=== PATIENT | male | born 1945 | race Caucasian/White ===

== ENCOUNTER → 2025-03-31 15:36 | Outpatient (REF) | payer OTHER, SELFPAY | LOC: RCS 15:36 | PROVIDERS: ATTENDING PHYSICIAN Internal Medicine Cardiovascular Disease; FAMILY PHYSICIAN Internal Medicine | DX: I48.91 Unspecified atrial fibrillation (principal); I10 Essential (primary) hypertension; I44.7 Left bundle-branch block, unspecified | CPT/HCPCS: 93306 ==

== ENCOUNTER 2025-04-19 05:59 | Day surgery (SDC) | payer OTHER, SELFPAY ==
[2025-04-13 10:36] VITALS: BMI 28.5
[2025-04-13 11:10] LABS: INR 1.03; PT 13.8 Sec (11.4-14.6)
[2025-04-13 11:19] LABS: ALT (SGPT) 30 U/L (0-50); AST (SGOT) 33 U/L (17-59); Albumin 4.5 g/dl (3.5-5.0); Alkaline Phosphatase 45 U/L (38-126); Blood Urea Nitrogen 19 mg/dl (9-20); Carbon Dioxide 25 mmol/L (22-30); Chloride 109 mmol/L (98-107); Estimated Creatinine Clearance 57 ml/min; Glucose 88 mg/dl (70-99); Magnesium 2.1 mg/dl (1.6-2.3); Potassium 4.3 mmol/L (3.5-5.1); Sodium 140 mmol/L (135-145); Total Bilirubin 0.6 mg/dl (0.2-1.3); Total Protein 6.9 g/dl (6.3-8.2); eGFR > 60.00
[2025-04-13 11:25] LABS: % Basophils 1.2 % (0-2); % Eosinophils 2.8 % (0-6); % Immature Granulocytes 0.6 % (0-0.5); % Lymphocytes 21.9 % (20.5-51.1); % Monocytes 13.9 % (1.7-9.3); % Neutrophils 59.6 % (42.2-75.2); Absolute Basophils 0.1 10^3/uL (0-0.2); Absolute Eosinophils 0.2 10^3/uL (0-0.7); Absolute Immature Granulocytes 0.1 10^3/uL (0-0.05); Absolute Lymphocytes 1.9 10^3/uL (1.2-3.4); Absolute Monocytes 1.2 10^3/uL (0.1-0.6); Hematocrit 42.6 % (39.0-52.0); Hemoglobin 14.6 g/dL (13.0-18.0); Mean Corp Hgb Conc. 34.3 g/dL (33.0-37.0); Mean Corpuscular Hgb 32.5 pg (27.0-31.0); Mean Corpuscular Volume 94.9 fL (80.0-94.0); Mean Platelet Volume 9.6 fL (7.4-10.4); Nucleated Red Blood Cells % 0 % (-); Platelet Count 287 10^3/uL (130-400); Red Blood Cell Count 4.49 10^6/uL (4.70-6.10); Red Cell Dist. Width 13.2 % (11.5-14.5); White Blood Cell Count 8.4 10^3/uL (4.8-10.8)
[2025-04-19] VITALS (15 sets, daily range): BP systolic 122–155; BP diastolic 48–84; BMI 28.2
--- NOTE | 2025-04-19 07:41 | ITS.CL.ABL ---
Fusing Machine Feeder - Ablation
Ablation
Procedure Report:
Primary Floor Supervisor: Dr Medardo Escobedo
Procedure Date: 04/19/2025
Patient History:
Patient is a pleasant 80 year old male with past medical history significant for sleep apnea not treated, hyperlipidemia, hypertension, left bundle branch block, and symptomatic paroxysmal recurrent AF despite antiarrhythmic medical therapy.
See H&P for complete details.
Indication:
Symptomatic paroxysmal atrial fibrillation
Recurrence despite antiarrhythmic medical therapy
Arrhythmia Specific History:
Prior Medical Therapies for Rate and Rhythm Control:
[ ] Beta-cristian
[ ] Calcium channel-cristian
[ ] Amiodarone
[ ] Dronederone
X Sotalol
[ ] Flecainide
[ ] Dofetilide
X Options limited by bradycardia
[ ] Options limited by comorbid renal disease
Prior Procedural Therapies for AF/AFL:
[ ] Cardioversion
[ ] Pulmonary Vein Isolation
[ ] Posterior Wall Isolation
[ ] Additional lines (Specify)
[ ] Surgical Pedro-MAZE or PVI (Specify)
Procedure Performed:
X AF ablation procedure (95640) -- includes LA/CS pacing, trans-septal, 3D mapping, + ICE
[ ] +IV drug (42071)
[ ] +Other Arrhythmia (26168)
X +Other AF Line/ablation (35076 x2) -- floor line, roof line, and posterior wall isolation
Risks and expected recovery has been explained in detail. Alternative options have been explored, and in a shared-decision making fashion we have decided that this was the most appropriate procedure.
Method
NPO status confirmed. Grounding pad applied. Defibrillator pads applied. Continuous surface ECG, pulse oximetry, and blood pressure were monitored. Procedure was performed under general anesthesia, with anesthesia services.
Both groins were clipped, prepped with Chloraprep, and draped in sterile fashion. Time out was called. Local anesthesia administered with bupivacaine. The right femoral vein was accessed for catheter placement, using ultrasound guidance (images
saved to record), micro-puncture needle/wire, and modified seldinger technique. 3 sheaths were placed. The following catheters were used:
[ ] Tacticath SE (D/F Curve) ablation catheter
X Viewflex 9Fr ICE catheter
X Inquiry decapolar 6Fr diagnostic catheter
[ ] CRD Hex 6Fr
[ ] Arctic Front Advance Cryoballoon ([ ]28mm[ ]23mm)
[ ] Achieve Advance mapping catheter ([ ]15mm[ ]20mm)
X FlexCath Contour 10 Fr with PulseSelect PFA Catheter
X Advisor HD Grid Mapping Catheter, SE
[ ] Acuson AcuNav 8 Fr ICE catheter
[ ]Other: [ ]
Intracardiac ultrasound (ICE) was carefully advanced into the right atrium to guide sheath placement over a J-wire, catheter placement, guide trans-septal puncture, identify potential complications, identify anatomic structures and ensure proper
contact between ablation catheter and tissue.
Heparin was given prior to trans-septal puncture. Heparin was given to achieve and maintain a target ACT of 300-400 seconds throughout the procedure.
Trans-septal access was performed under ICE guidance. The trans-septal puncture was performed with a SafeSept wire through a Brockenbrough needle assembly through the steerable sheath. The wire was visualized as it entered the LSPV and system
advanced under ICE guidance and fluoroscopy into the LA. The Brockenbrough needle assembly, SafeSept wire and sheath dilator were removed under negative pressure. LA pressure was measured and recorded.
ICE and 3D mapping was performed to identify relevant cardiac structures. A careful 3D map was created to assess for regions of low-voltage and abnormal electrogram signals using HD grid mapping catheter and PulseSelect catheter. Additional mapping
was performed as outlined below.
Prior to ablation, glycopyrrolate was provided. PulseSelect catheter was advanced over J-wire to the ostium of each vein. Pulmonary vein isolation was performed with ostial and antral lesions in a circumferential manner. Contact was visualized via
EAM, ICE, fluoroscopy, and EGM signals. Due to anatomy and clinical history, a floor line, roof line and posterior wall isolation were performed by anchoring the J-wire within the pulmonary vein and placing the PulseSelect catheter in contact with
the floor, roof, and posterior wall as visualized by aforementioned methods. Following completion of ablation lesions, a post-ablation voltage/activation map was performed in sinus rhythm. Entrance and exit block were confirmed for each vein and the
posterior wall.
Catheter and sheath were removed from the left atrium and post-ablation intracardiac echo evaluation was consistent with pre-ablation with no changes and no pericardial effusion and there is no left atrial thrombus or left ventricle thrombus seen.
Electrophysiology study was performed. Hemostasis was obtained with figure of 8 stitch for each groin and with manual pressure. Protamine was used for reversal.
Estimated Blood Loss
5 mL
Complications
None
Fluoroscopy: 1.7 minutes; 3.97 mGy; DAP 1.01
LA Pressure: Pre 10 mmHg, post 13 mmHg
Baseline Intervals:
Rhythm: SR
CO: 160 ms
QRS: 110 ms
QT: 437 ms
QTc: 395 ms
A-A: 1224 ms
R-R: 1224 ms
Post-Procedure Intervals:
CO: 162 ms
QRS: 110 ms
QT: 473 ms
QTc: 444 ms
A-A: 1113 ms
R-R: 1113 ms
AVWB: 370 ms
AVNERP: 600/310 ms
AERP: 600/270 ms
Recommendations
- Bedrest with straight-leg precautions as ordered
- Anticipate same day discharge if patient meeting clinical metrics
- Resume home medications as indicated
- Ok to resume anticoagulation tonight if patient and groin sites stable
- PPI daily for 30 days
- Plan for follow-up in office as scheduled
- Decrease sotalol to 80 mg twice daily with plan discontinue at 3 months
Darin Keller, DO, FACC, RS
Clinical Cardiac Luggage Attendant
cc: Dr Medardo Escobedo; Dr Marilou Cason
[2025-04-19 08:30] LABS: ACT-LR - POC 273 Seconds (116-155)
[2025-04-19 08:43] LABS: ACT-LR - POC 306 Seconds (116-155)
[2025-04-19 09:06] LABS: ACT-LR - POC 313 Seconds (116-155)
[2025-04-19 09:34] LABS: ACT-LR - POC 224 Seconds (116-155)
[2025-04-19] MEDS: ANESTHETIC LOZENGE 1 LOZENGE PO (11:38)
--- NOTE | 2025-04-19 13:34 | W.PN.UPDATE ---
Update Note
Progress Note Update
Pt seen post PFA. Right groin site without ht/bleeding, oob ambulating, urinating without difficulty. Post EKG NSR 60s, no acute changes. Resume eliquis tonight at usual time. Decrease sotalol to 80mg BID at this time, with intention to discontinue
in [address] Escobedo as scheduled. Home today if groin site/tele remain stable.
== END 2025-04-19 14:33 | disposition home or self-care (01) ==
LOC: CATH 05:59
PROVIDERS: ATTENDING PHYSICIAN Internal Medicine Cardiovascular Disease; FAMILY PHYSICIAN Internal Medicine
DX: I48.0 Paroxysmal atrial fibrillation (principal); I44.7 Left bundle-branch block, unspecified; I10 Essential (primary) hypertension; E78.5 Hyperlipidemia, unspecified; G47.33 Obstructive sleep apnea (adult) (pediatric); R00.1 Bradycardia, unspecified; N40.0 Benign prostatic hyperplasia without lower urinary tract symptoms; Z79.01 Long term (current) use of anticoagulants; Z79.899 Other long term (current) drug therapy; J21.9 Acute bronchiolitis, unspecified
CPT/HCPCS: C1732; C1769; C1892; C1733; C1730; C1894; 36415; 75572; 80053; 83735; 85025; 85347; 85610; 86850; 86900; 86901; 93005; 93656; 93657; C1766; Q9967